=== PATIENT | male | born 1980 | race Caucasian/White ===

== ENCOUNTER 2017-07-21 14:46 | Emergency (ER) | payer SELFPAY ==
[~2017-07-21] VITALS: Ht 175.3 cm; Wt 115.9 kg
[2017-07-21 15:43] LABS: HEMATOCRIT 43.7 % (38.0-50.0); MCH 29.2 PG (29.0-34.0); MCHC 33.2 G/DL (30.0-36.0); MCV 87.9 FL (86-99); MEAN PLAT.VOLUME 9.7 uM^3 (9.0-12.4); PLATELET COUNT 200 K/uL (156-360); RBC DIS.WIDTH-CV 13.6 % (11.8-14.6); RBC DIS.WIDTH-SD 43.8 % (39-53); RED BLOOD COUNT 4.97 M/uL (4.00-5.50); WHITE BLOOD COUNT 11.4 K/uL (4.1-10.2)
[2017-07-21 15:51] LABS: CHLORIDE 104 mEq/L (99-109); POTASSIUM 3.9 mEq/L (3.7-5.4); SODIUM 137 mEq/L (136-147)
[2017-07-21 15:53] LABS: GLUCOSE 107 mg/dL (70-99)
[2017-07-21 15:54] LABS: ANION GAP 10 MEQ/L (2-14)
[2017-07-21 15:57] LABS: ALKALINE PHOSPHATASE 66 IU/L (3-129); GFR ESTIMATE (CALCULATED) > 59 mL/min/
[2017-07-21 15:58] LABS: UREA NITROGEN (BUN) 23 mg/dL (9-23)
[2017-07-21 16:00] LABS: LIPASE 18 U/L (1.0-51.0)
[2017-07-21] MEDS ORDERED: ZOFRAN ODT4 MG PO (16:33)
[2017-07-21] MEDS ORDERED: FLOMAX0.4 MG PO (16:33)
[2017-07-21] MEDS ORDERED: PERCOCET 5/31 TABLET PO (16:33)
[2017-07-21 17:08] VITALS: BP 156/86
== END 2017-07-21 17:09 | disposition home or self-care (01) ==
LOC: EME 14:46
DX: N20.0 Calculus of kidney (principal); R10.9 Unspecified abdominal pain; R11.2 Nausea with vomiting, unspecified; Z87.891 Personal history of nicotine dependence
CPT/HCPCS: 74176; 80053; 81003; 83690; 85027; 99281; 99284; J1885; J2405; J7030

== ENCOUNTER 2018-02-28 11:51 | Emergency (ER) | payer SELFPAY ==
[~2018-02-28] VITALS: Ht 175.3 cm; Wt 108.0 kg
[~2018-02-28 11:51] MED LIST: FLOMAX0.4 MG PO; PERCOCET 5/31 TABLET PO; ZOFRAN ODT4 MG PO
[2018-02-28 12:19] LABS: BASOPHIL (%) 0.4 % (0-1); BASOPHIL COUNT 0.1 K/uL (0-0.1); EOSINOPHIL (%) 0.5 % (0-5); EOSINOPHIL COUNT 0.1 K/uL (0-0.3); HEMATOCRIT 46.7 % (38.0-50.0); HEMOGLOBIN 15.3 G/DL (12.5-16.6); IMMATURE GRANULOCYTE (%) 0.7 % (0.0-0.7); LYMPHOCYTE (%) 15.9 % (15-42); LYMPHOCYTE COUNT 2.3 K/uL (1.0-2.8); MCH 29.8 PG (29.0-34.0); MCHC 32.8 G/DL (30.0-36.0); MCV 90.9 FL (86-99); MONOCYTE (%) 8.1 % (3-12); MONOCYTE COUNT 1.2 K/uL (0-0.8); NEUTROPHIL (%) 74.4 % (45-76); PLATELET COUNT 234 K/uL (156-360); RBC DIS.WIDTH-CV 13.3 % (11.8-14.6); RBC DIS.WIDTH-SD 45.1 % (39-53); RED BLOOD COUNT 5.14 M/uL (4.00-5.50); WHITE BLOOD COUNT 14.8 K/uL (4.1-10.2)
[2018-02-28 12:28] LABS: CHLORIDE 106 mEq/L (99-109); POTASSIUM 4.7 mEq/L (3.7-5.4); SODIUM 140 mEq/L (136-147)
[2018-02-28 12:30] LABS: GLUCOSE 107 mg/dL (70-99)
[2018-02-28 12:34] LABS: CREATININE 0.9 mg/dL (0.6-1.3); GFR ESTIMATE (CALCULATED) > 59 mL/min/ (58.99-99999)
[2018-02-28 12:35] LABS: UREA NITROGEN (BUN) 17 mg/dL (9-23)
[2018-02-28 14:12] LABS: SALICYLATE < 5.0 MG/DL (15-30)
[2018-02-28] MEDS ORDERED: PERCOCET 5/31 TABLET PO (15:42)
[2018-02-28] MEDS ORDERED: KEFLEX500 MG PO (15:42)
[2018-02-28 16:28] VITALS: BP 133/77
[2018-03-01] MEDS ORDERED: VIBRAMYCIN100 MG PO (12:11)
[2018-03-01] MEDS ORDERED: ADVIL200 MG PO (12:12)
== END 2018-02-28 16:32 | disposition home or self-care (01) ==
LOC: EME 11:51
DX: L03.012 Cellulitis of left finger (principal); Z87.891 Personal history of nicotine dependence
CPT/HCPCS: 73130; 80048; 85025; 87040; 99281; 99285; G0480; J0696; J1885; J7030